=== PATIENT | female | born 1985 | race Caucasian/White ===

== ENCOUNTER 2017-02-08 20:34 | Emergency (ER) | payer BC ==
[2017-02-08 22:17] LABS: Appearance,Urine Clear (Clear); Bilirubin,Urine Negative (Negative); Blood,Urine Moderate (Negative); Color,Urine Yellow; Glucose,Urine (UA) Negative (Negative); Ketones,Urine Negative (Negative); Leukocyte Esterase,Urine Small (Negative); Mucus,Urine Occasional /hpf; Nitrite,Urine Negative (Negative); Protein,Urine Trace (Negative); RBC,Urine 1 /hpf (0-5); Specific Gravity,Urine 1.015 (1.001-1.035); Squamous Epithelial Cell,Urine 1 /hpf (0-4); WBC,Urine 5 /hpf (0-5)
[2017-02-08] MEDS ORDERED: AZITHROMYCIN 500 MG TAB PO STA (22:59)
[2017-02-08] MEDS ORDERED: valACYclovir HCL 1,000 MG TABLET PO STA (22:59)
[2017-02-08] MEDS ORDERED: cefTRIAXone 250 MG VIAL IM STA (22:59)
--- NOTE | 2017-02-08 23:03 | ED ---
Female Urogenital HPI - General Chief complaint: Urogenital Stated complaint: Urogenital Time Seen by Provider: 02/08/17 22:04 Source: patient, RN notes reviewed, old records reviewed Mode of arrival: ambulatory Limitations: no limitations - History of Present Illness Initial comments: Patient is a 31-year-old female presents emergency Department chief complaint of lesions over her vaginal area. She was seen in urgent care and diagnosed with a yeast infection yesterday. One dose of Diflucan. She reports that her vaginal discharge has resolved but she continues to have painful lesions over her labia minora and majora. Patient states that she has had pain with urination. She denies any abdominal pain. She reports that she's had history of sexual contact. Unsure if they may have herpes or other sexually transmitted infections. She denies any nausea or vomiting, abdominal pain, chest pain or shortness of breath. She reports that she was started her menstrual cycle today as well. Last Menstrual Period: 02/08/17 - Related Data Home Medications Medication Instructions Recorded Confirmed lamoTRIgine [LaMICtal] 200 mg PO DAILY 05/16/15 02/08/17 Sertraline [Zoloft] 50 mg PO DAILY 10/24/15 02/08/17 Previous Rx's Medication Instructions Recorded HYDROcodone/APAP 5-325MG [[place] 1 tab PO Q6HR PRN #12 tab 02/08/17 5-325] valACYclovir HCL [Valtrex] 1,000 mg PO BID #20 tablet 02/08/17 Allergies Allergy/AdvReac Type Severity Reaction Status Date / Time No Known Allergies Allergy Verified 02/08/17 21:55 Review of Systems ROS Statement: Those systems with pertinent positive or pertinent negative responses have been documented in the HPI. ROS Other: All systems not noted in ROS Statement are negative. Past Medical History Past Medical History: No Reported History History of Any Multi-Drug Resistant Organisms: None Reported Past Surgical History: No Surgical Hx Reported Additional Past Surgical History / Comment(s): RECENT D&C ON Saturday2015 Past Anesthesia/Blood Transfusion Reactions: No Reported Reaction Past Psychological History: Anxiety, Bipolar Smoking Status: Never smoker Past Alcohol Use History: None Reported Past Drug Use History: None Reported General Exam - General Exam Comments Initial Comments: 31-year-old female. No distress. Limitations: no limitations General appearance: alert, in no apparent distress Head exam: Present: atraumatic, normocephalic, normal inspection Eye exam: Present: normal appearance, PERRL, EOMI. Absent: scleral icterus, conjunctival injection, periorbital swelling ENT exam: Present: normal exam Neck exam: Present: normal inspection. Absent: tenderness, meningismus, lymphadenopathy Respiratory exam: Present: normal lung sounds bilaterally. Absent: respiratory distress, wheezes, rales, rhonchi, stridor Cardiovascular Exam: Present: regular rate, normal rhythm, normal heart sounds. Absent: systolic murmur, diastolic murmur, rubs, gallop, clicks GI/Abdominal exam: Present: soft, normal bowel sounds. Absent: distended, tenderness, guarding, rebound, rigid External exam: Present: lesions (Also erythematous blisterlike lesions over her labia majora and minora. Evidence of herpes.). Absent: normal external exam Speculum exam: Present: normal speculum exam. Absent: erythema, vaginal discharge By manual exam: Present: normal by manual exam. Absent: cervical motion tenderness, adnexal tenderness Extremities exam: Present: normal inspection, full ROM, normal capillary refill. Absent: tenderness, pedal edema, joint swelling, calf tenderness Back exam: Present: normal inspection, full ROM Neurological exam: Present: alert, oriented X3, CN II-XII intact Psychiatric exam: Present: normal affect, normal mood Skin exam: Present: warm, dry, intact, normal color. Absent: rash Course Vital Signs 02/08/17 02/08/17 20:53 23:16 Temperature 98.5 F 97.9 F Pulse Rate 80 86 Respiratory 18 17 Rate Blood Pressure 143/90 148/75 O2 Sat by Pulse 98 97 Oximetry Medical Decision Making - Medical Decision Making This is a 31-year-old female presents emergency department today chief complaint of lesions over her vaginal area for the past week. Patient reports it started off as a pruritic-like lesion. She reports she was treated with Diflucan by urgent care yesterday. At this time patient is on her menstrual cycle. She has multiple lesions over bilateral areas of her labia majora or minora. Consistent with herpes. Patient will be started on Valtrex and pain medication. She also requests to be treated further sexual transmitted infections. Given a shot of Rocephin and azithromycin today. We will I did do a culture taken for chlamydia and gonorrhea. Patient understands treatment plan will comply to. Return parameters were discussed. Discussed informing all sexual partners. Discussed avoiding sexual intercourse for the next 2 weeks. - Lab Data Lab Results 02/08/17 02/08/17 02/08/17 Range/Units 22:00 22:00 23:12 Urine Color Yellow Urine Appearance Clear (Clear) Urine pH 7.0 (5.0-8.0) Ur Specific [place] 1.015 (1.001-1.035) Urine Protein Trace H (Negative) Urine Glucose (UA) Negative (Negative) Urine Ketones Negative (Negative) Urine Blood Moderate H (Negative) Urine Nitrite Negative (Negative) Urine Bilirubin Negative (Negative) Urine Urobilinogen 3.0 (<2.0) mg/dL Ur Leukocyte Esterase Small H (Negative) Urine RBC 1 (0-5) /hpf Urine WBC 5 (0-5) /hpf Ur Squamous Epith Cells 1 (0-4) /hpf Urine Mucus Occasional H (None) /hpf Urine HCG, Qual Not Detected (Not Detectd) Trichomonas Ag (Rapid) Negative (Negative) Disposition 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 Inform all sexual contacts that you are currently contagious with herpes Symplex. Patient should return to the emergency department if any alarming signs or symptoms occur. Prescriptions: HYDROcodone/APAP 5-325MG [[place] 5-325] 1 tab PO Q6HR PRN #12 tab PRN Reason: Pain valACYclovir HCL [Valtrex] 1,000 mg PO BID #20 tablet Referrals: Mat Reid MD [Primary Care Provider] - 1-2 days Time of Disposition: 23:00
[2017-02-08 23:19] VITALS: BP 148/75; PULSE 86; RESP 17; TEMP 97.9
[2017-02-12 15:02] LABS: Chlamydia trachomatis rRNA Not detected (Not detected); Neisseria gonorrhoeae rRNA Not detected (Not detected)
== END 2017-02-08 23:20 | disposition home or self-care (01) ==
LOC: EC 20:34
DX: A60.09 Herpesviral infection of other urogenital tract (principal); F31.9 Bipolar disorder, unspecified; F41.9 Anxiety disorder, unspecified; Z79.899 Other long term (current) drug therapy
CPT/HCPCS: 87591; 87491; 81001; 81025; 87808; 87070; 99284; 96372; J0696; 87205